=== PATIENT | female | born 1960 | race Caucasian/White ===

== ENCOUNTER 2022-04-04 20:12 | Inpatient (IN) | payer MEDICARE, OTHER ==
[~2022-04-04] VITALS: Ht 147.3 cm; Wt 99.8 kg
--- NOTE | 2022-04-04 21:02 | NUR ---
BIBFAMILY FROM HOME FOR PSYCH EVAL FOR ADMISSION PER FAMILY, "MEDS ARE NOT WORKING, SHE IS TALKING TO HERSELF". PT CONFUSED. TOLERATING R/A WELL WITH NO RESP DISTRESS. AMB WITH STANDBY ASSISTANCE. SAFETY MEASURES IN PLACE.
--- NOTE | 2022-04-04 21:03 | NUR ---
COVID SWAB COLLECTED
--- NOTE | 2022-04-04 21:04 | NUR ---
Juancarlos ahuja in [place] - 04/04/22 at 2104 by DIANA URINE AND COVID ANTIGEN SWAB COLLECTED AND SENT TO LAB
--- NOTE | 2022-04-04 21:05 | NUR ---
Note [email or web address] in EDM - 04/04/22 at 2116 by DIANA BIBFAMILY FROM HOME FOR PSYCH EVAL FOR ADMISSION PER FAMILY, "MEDS ARE NOT WORKING, SHE IS TALKING TO HERSELF". PT CONFUSED. TOLERATING R/A WELL WITH NO RESP DISTRESS. AMB WITH STANDBY ASSISTANCE. SAFETY MEASURES IN PLACE.
[2022-04-04 21:44] LABS: BILIRUBIN,URINE 1+ (NEGATIVE); COLOR,URINE YELLOW (YELLOW); LEUKOCYTE ESTERASE ,URINE 2+ (NEGATIVE); NITRITE, URINE NEGATIVE (NEGATIVE); PROTEIN,URINE TRACE mg/dl (NEGATIVE); UGLUCOSE NEGATIVE (NEGATIVE); UROBILINOGEN,URINE 0.2 EU/dL (0.2)
--- NOTE | 2022-04-04 21:49 | NUR ---
CATALYST RECOVERY OPERATOR AT PT'S BEDSIDE
[2022-04-04 21:59] LABS: BACTERIA,URINE 3+ /HPF (None Seen); WBC,URINE 21-50 /HPF (0-3)
[2022-04-04 22:07] LABS: BASOPHILS # (AUTO) 0.1 K/uL (0.0-0.2); BASOPHILS % (AUTO) 1.1 % (0.0-2.0); EOSINOPHILS % (AUTO) 3.5 % (0.0-6.0); HEMATOCRIT 41 % (33-45); HEMOGLOBIN 13.1 g/dL (11.5-14.8); LYMPHOCYTES % (AUTO) 29.9 % (20.0-44.0); MEAN CORPUSCULAR HGB CONC 32 g/dl (31.0-36.0); MEAN CORPUSCULAR VOLUME 80 fL (82-100); MONOCYTES # (AUTO) 0.5 K/uL (0.1-1.30); MONOCYTES % (AUTO) 7.6 % (2.0-12.0); NEUTROPHILS # (AUTO) 3.8 K/uL (1.8-8.9); NEUTROPHILS % (AUTO) 57.9 % (43.0-81.0); PLATELET COUNT (AUTO) 276 K/uL (150-450); RED BLOOD CELL COUNT(AUTO) 5.08 MIL/uL (4.0-5.2); WHITE BLOOD COUNT (AUTO) 6.6 K/uL (4.3-11.0)
[2022-04-04] MEDS ORDERED: TRAZ-257 MT (22:08)
[2022-04-04] MEDS ORDERED: BENZ0.5T43 MT (22:08)
[2022-04-04] MEDS ORDERED: QUET50TA PO (22:08)
[2022-04-04] MEDS ORDERED: DIVA250T4 PO (22:08)
[2022-04-04] MEDS ORDERED: NITROFURANTOIN/MONOHYDRATE MACROCRYSTALS 100 MG CAPSULE ONE (22:26)
[2022-04-04] MEDS ORDERED: QUETIAPINE FUMARATE 25 MG TABLET ONE (22:26)
[2022-04-04] MEDS ORDERED: QUETIAPINE FUMARATE 25 MG TABLET PO SCH (22:30)
[2022-04-04] MEDS ORDERED: NITROFURANTOIN/MONOHYDRATE MACROCRYSTALS 100 MG CAPSULE PO ONE (22:30)
[2022-04-04 22:33] LABS: ALANINE AMINOTRANSFERASE 25 U/L (12-78); ALBUMIN 3.4 g/dL (3.4-5.0); ALCOHOL, BLOOD < 3 mg/dL (0-0); ALKALINE PHOSPHATASE 56 U/L (46-116); ASPARTATE AMINOTRANSFERASE 20 U/L (15-37); BILIRUBIN,DIRECT 0.1 mg/dL (0.0-0.2); BILIRUBIN,TOTAL 0.2 mg/dL (0.2-1.0); CALCIUM, SERUM 8.7 mg/dL (8.5-10.1); CARBON DIOXIDE 34 mmol/L (21-32); CHLORIDE 103 mmol/L (98-107); CREATININE 0.8 mg/dL (0.6-1.3); GLUCOSE 142 mg/dL (74-106); POTASSIUM 3.5 mmol/L (3.5-5.1); SODIUM SERUM 139 mmol/L (136-145); TOTAL PROTEIN, SERUM 6.6 g/dL (6.4-8.2); UREA NITROGEN, BLOOD 20 mg/dL (7-18)
[2022-04-04 22:44] LABS: ACETAMINOPHEN 0 ug/ml (10-30)
--- NOTE | 2022-04-04 22:58 | NUR ---
CALLED SILVICULTURIST JAKOB LEFT VOICEMAIL
--- NOTE | 2022-04-04 23:14 | NUR ---
UPDATED TAMAR DAUGHTER [phone]
--- NOTE | 2022-04-04 23:29 | NUR ---
CALLED MANAGER OB JAKOB LEFT VOICEMAIL
[2022-04-05] MEDS ORDERED: LORAZEPAM INJ 2 MG/ML VIAL ONE ×2 (00:49→01:10)
[2022-04-05] MEDS ORDERED: LORAZEPAM INJ 2 MG/ML VIAL IM ONE ×2 (01:00→01:30)
[2022-04-05] MEDS ORDERED: diphenhydrAMINE HCL 50 MG/ML VIAL ONE (01:09)
[2022-04-05] MEDS ORDERED: diphenhydrAMINE HCL 50 MG/ML VIAL IM ONE (01:30)
--- NOTE | 2022-04-05 03:41 | NUR ---
JAKOB PIPER CRISIS TIME ON THE WAY FOR [place]
--- NOTE | 2022-04-05 05:36 | NUR ---
JAKOB PIPER CRISIS AT PT'S BEDSUDE FOR EVAL Addendum: 04/05/22 at 0656 by DIANA JAKOB PIPER CRISIS AT PT'S BEDSIDE FOR EVAL
--- NOTE | 2022-04-05 05:49 | NUR ---
PT PLACED ON 5150 HOLD BY JAKOB PIPER FOR DTO & GD
[2022-04-05] MEDS ORDERED: HYDR-4303 PO (05:53)
[2022-04-05] MEDS ORDERED: LISI10TA29 PO (05:54)
[2022-04-05] MEDS ORDERED: METF-440 PO (05:54)
[2022-04-05] MEDS ORDERED: ASPI-1420 PO (05:56)
[2022-04-05] MEDS ORDERED: LEVO50TA8 PO (05:56)
[2022-04-05] MEDS ORDERED: SIMV-46 PO (05:58)
--- NOTE | 2022-04-05 09:08 | NUR ---
PT REPORT GIVEN TO KACEY, ACCOUNT ASSISTANT NURSE GPS
[2022-04-05 09:30] VITALS: BP 142/83
[2022-04-05] MEDS ORDERED: MAG HYDROX/AL HYDROX/SIMETH 30 ML UDC PO PRN (09:30)
[2022-04-05] MEDS ORDERED: MAGNESIUM HYDROXIDE 30 ML UDC PO PRN (09:30)
[2022-04-05] MEDS ORDERED: BLOOD SUGAR DIAGNOSTIC 1 EACH STRIP IN ONE (09:30)
--- NOTE | 2022-04-05 09:30 | NUR ---
GPS/RN RECEIVED PT FROM ER ON 5149 FOR GD AND DTO ORIGINALLY FROM HOME, BROUGHT BY FAMILY MEMBERS. PT IS SEDATED AT THE TIME OF ADMISSION. ADMITTING ORDERS FROM DR QUEVEDO RECEIVED AND CARRIED OUT. DR BELLO MADE AWARE OF ADMISSION. PROPERTY CHECKED FOR CONTRABAND. VSS. PT'S DAUGHTER TAMAR AWARE OF ADMISSION
--- NOTE | 2022-04-05 09:33 | NUR ---
TRANSFERRED TO BED 219 IN STABLE CONDITION
--- NOTE | 2022-04-05 10:20 | NUR ---
SW Treatment Plan: Pt unable to sign due to her confusion.
--- NOTE | 2022-04-05 10:20 | NUR ---
LESTER Initial Discharge Note: Patient lives at home [address] [place] [address]; ([phone]). LESTER contacted patient's daughter Aaron ([phone]) to discuss treatment/discharge plan. She stated that she would want pt back home. She stated that she is the DPOA and she will drop off the documents when she visits the pt. LESTER will discuss with the MD, treatment team, and MD to help coordinate appropriate discharge plan.
--- NOTE | 2022-04-05 10:20 | NUR ---
LESTER Family Contact: SW spoke with pt's daughter Aaron ([phone]) to gather collateral and discuss treatment/discharge plan. Daughter stated that pt has been aggressive at home and that she was not eating for about 2-3 days and her appetite had decreased. Daughter stated that she is the DPOA and she will bring the documents. Daughter stated that she would want pt back home upon dc. Pt has her doctors, Heel Caser, Dr. Tapia located at [address] [place] [address]; ([phone]) and Psychiatrist, Dr. Quiroz [address] [address]; ([phone]).
--- NOTE | 2022-04-05 10:29 | NUR ---
LESTER Clinical Note: Patient placed on a 5150 hold for GD and danger to others. Pt was brought in due to striking out at family and has been aggressive. Patient will return back home located at [address] [place] [phone]; ([phone]). LESTER spoke with pt's daughter Aaron ([phone]) to gather collateral and discuss treatment/discharge plan. Daughter stated that pt has been aggressive at home and that she was not eating for about 2-3 days and her appetite had decreased. Daughter stated that she is the DPOA and she will bring the documents. Daughter stated that she would want pt back home upon dc. Pt has her doctors, [employer] G[employer]er, Dr. Tapia located at [address] [place] [address]; ([phone]) and Psychiatrist, Dr. Quiroz [address] [address]; ([phone]).
[2022-04-05] MEDS: ASPIRIN EC 81 MG TABLET.DR PO SCH (12:00)
[2022-04-05] MEDS ORDERED: HYDROCODONE/APAP 5/325MG TABLET PO PRN (12:00)
[2022-04-05] MEDS: DIVALPROEX SODIUM 250 MG TABLET.DR PO SCH ×2 (12:57→17:30)
--- NOTE | 2022-04-05 12:57 | NUR ---
GPS/RN 1200 AND 1300 SCHEDULED MEDS NOT GIVEN PT CONTINUES TO BE SEDATED
[2022-04-05 16:00] VITALS: BP 156/92
[2022-04-05] MEDS: OLANZAPINE 2.5 MG TABLET PO SCH (17:30)
[2022-04-05] MEDS: SIMVASTATIN 20 MG TABLET PO SCH (17:30)
[2022-04-05] MEDS: METFORMIN 500 MG TABLET PO SCH (17:31)
[2022-04-05 20:00] VITALS: BP 145/93
[2022-04-05] MEDS: OLANZAPINE 10 MG TABLET PO SCH (21:24)
[2022-04-05] MEDS: CEPHALEXIN MONOHYDRATE 500 MG CAPSULE PO SCH (21:26)
--- NOTE | 2022-04-05 22:04 | NUR ---
RN NOTES:PATIENT SITTING UP IN GERICHAIR, ,NO S/SX OF ACUTE DISTRESS NOTED,EASILY AGITATED, CONFUSED,DISORGANIZED,GUARDED PARANOID,ANXIOUS POOR JUDGEMENT INSIGHT AND IMPULSE CONTROL,HIGH FALL RISKS, NEEDS FREQUENT REDIRECTION, ALL NEEDS ATTENDED AND ANTICIPATED, DENIES SI/HI AT THIS TIME.ENCOURAGE TO VERBALIZED ANY FEELING OR CONCERN, SAFETY MEASURES IN PLACE. WILL CONTINUE TO MONITOR .
--- NOTE | 2022-04-05 22:21 | NUR ---
RN NOTES: PT. TRANSFERED BACK TO BED , PT. RESTING IN HER BED AT THIS TIME, WILL CONTINUE WITH CARE
[2022-04-06] MEDS ORDERED: Z GUARD REMEDY 4 OZ OINT TP PRN (06:30)
[2022-04-06] MEDS: LEVOTHYROXINE SODIUM 50 MCG TABLET PO SCH (07:30)
[2022-04-06 07:51] LABS: ALBUMIN 3.6 g/dL (3.4-5.0); BILIRUBIN,TOTAL 0.4 mg/dL (0.2-1.0); CREATININE 0.8 mg/dL (0.6-1.3); POTASSIUM 3.6 mmol/L (3.5-5.1); TOTAL PROTEIN, SERUM 6.9 g/dL (6.4-8.2)
[2022-04-06 07:55] LABS: CHOLESTEROL 208 mg/dL (<200); HDL CHOLESTEROL 51 mg/dL (40-60); LDL 129 mg/dL (0-99); TRIGLYCERIDES 132 mg/dL (30-150)
[2022-04-06 08:00] VITALS: BP 140/86
[2022-04-06] MEDS: Z GUARD REMEDY 4 OZ OINT TP SCH (08:47)
[2022-04-06] MEDS: METFORMIN 500 MG TABLET PO SCH ×2 (08:48→17:32)
[2022-04-06] MEDS: ASPIRIN EC 81 MG TABLET.DR PO SCH (08:48)
[2022-04-06] MEDS: OLANZAPINE 2.5 MG TABLET PO SCH ×2 (08:48→17:34)
[2022-04-06] MEDS: DIVALPROEX SODIUM 250 MG TABLET.DR PO SCH (08:48)
[2022-04-06] MEDS: LISINOPRIL (10MG) 10 MG TABLET PO SCH (08:49)
[2022-04-06] MEDS: CEPHALEXIN MONOHYDRATE 500 MG CAPSULE PO SCH ×2 (08:49→21:14)
[2022-04-06] MEDS: BENZTROPINE MESYLATE (1 MG) 1 MG TABLET PO SCH ×2 (12:35→17:31)
[2022-04-06] MEDS: DIVALPROEX SODIUM 125 MG CAP.SPRINK PO SCH ×2 (12:55→17:32)
[2022-04-06 16:05] VITALS: BP 117/86
[2022-04-06] MEDS: SIMVASTATIN 20 MG TABLET PO SCH (17:49)
--- NOTE | 2022-04-06 18:41 | NUR ---
GPS NOTES: PATIENT IN BED WITH AT BEDSIDE. PATIENT IN NO ACUTE DISTRESS NOTED AT THIS TIME. NO S/S AGITATION NOTED THE ENTIRE SHIFT. PATIENT RESPONDS TO NAME BUT WITH PERIODS OF CONFUSION. PATIENT IS COMPLIANT WITH MEDICATION THE ENTIRE SHIFT. PATIENT IS HIGH RISK FOR FALL AND ALL SAFETY MEASURES IMPLEMENTED. PATIENT WAS ASSISTED TO THE BATHROOM FOR SAFETY. BED LOCKED AND IN LOWEST POSITION WITH BED ALARM ON. ALL NEEDS ATTENDED AND ANTICIPATED, DENIES SI/HI AT THIS TIME. ENCOURAGE TO VERBALIZED ANY FEELING OR CONCERN. WILL ENDORSE TO NEXT SHIFT NURSE FOR CONTINUITY OF CARE
--- NOTE | 2022-04-06 20:20 | NUR ---
RN NOTES :PATIENT RESTING IN ROOM,NO S/SX OF ACUTE DISTRESS NOTED,EASILY AGITATED, CONFUSED,DISORGANIZED,GUARDED PARANOID,ANXIOUS POOR JUDGEMENT INSIGHT AND IMPULSE CONTROL,HIGH FALL RISKS, NEEDS FREQUENT REDIRECTION, PT'S VISTED ALL NEEDS ATTENDED AND ANTICIPATED, DENIES SI/HI AT THIS TIME.ENCOURAGE TO VERBALIZED ANY FEELING OR CONCERN, SAFETY MEASURES IN PLACE. WILL CONTINUE TO MONITOR .
[2022-04-06] MEDS: OLANZAPINE 10 MG TABLET PO SCH (21:14)
[2022-04-06 21:59] VITALS: BP 132/74
[2022-04-07 08:00] VITALS: BP 122/66
[2022-04-07] MEDS: CEPHALEXIN MONOHYDRATE 500 MG CAPSULE PO SCH ×2 (09:47→21:27)
[2022-04-07] MEDS: DIVALPROEX SODIUM 125 MG CAP.SPRINK PO SCH ×3 (09:47→16:42)
[2022-04-07] MEDS: LISINOPRIL (10MG) 10 MG TABLET PO SCH (09:47)
[2022-04-07] MEDS: BENZTROPINE MESYLATE (1 MG) 1 MG TABLET PO SCH ×3 (09:49→16:42)
[2022-04-07] MEDS: LEVOTHYROXINE SODIUM 50 MCG TABLET PO SCH (09:49)
[2022-04-07] MEDS: ASPIRIN EC 81 MG TABLET.DR PO SCH (09:49)
[2022-04-07] MEDS: Z GUARD REMEDY 4 OZ OINT TP SCH (09:56)
[2022-04-07] MEDS: OLANZAPINE 2.5 MG TABLET PO SCH ×2 (09:56→16:42)
[2022-04-07] MEDS: METFORMIN 500 MG TABLET PO SCH ×2 (09:56→16:42)
--- NOTE | 2022-04-07 12:49 | NUR ---
PATIENT C/O NAUSEATE, NEW ORDER ZOFRAN 4 MG SL Q4 PRN. NOTED AND CARRY OUT.
[2022-04-07] MEDS ORDERED: ONDANSETRON 4 MG TAB.RAPDIS PO PRN (13:00)
[2022-04-07 16:00] VITALS: BP 104/67
[2022-04-07] MEDS: SIMVASTATIN 20 MG TABLET PO SCH (17:03)
[2022-04-07 20:26] VITALS: BP 110/67
[2022-04-07] MEDS: OLANZAPINE 10 MG TABLET PO SCH (21:27)
[2022-04-07] MEDS: TEMAZEPAM 7.5 MG CAPSULE PO PRN (21:28)
--- NOTE | 2022-04-07 21:29 | NUR ---
Pt unable to sleep. Least restrictive measures ineffective. Restoril 7.5 mg po prn given as ordered. Will continue to monitor.
--- NOTE | 2022-04-07 22:41 | NUR ---
Post 1 hr Restoril effective. Pt asleep in bed easy to arouse. Will continue to monitor. Frequent visual check done for safety.
[2022-04-08 08:00] VITALS: BP 128/47
[2022-04-08] MEDS: OLANZAPINE 2.5 MG TABLET PO SCH ×2 (08:21→17:57)
[2022-04-08] MEDS: LEVOTHYROXINE SODIUM 50 MCG TABLET PO SCH (08:22)
[2022-04-08] MEDS: DIVALPROEX SODIUM 125 MG CAP.SPRINK PO SCH ×3 (08:22→17:35)
[2022-04-08] MEDS: BENZTROPINE MESYLATE (1 MG) 1 MG TABLET PO SCH ×3 (08:23→17:36)
[2022-04-08] MEDS: METFORMIN 500 MG TABLET PO SCH ×2 (08:23→17:35)
[2022-04-08] MEDS: LISINOPRIL (10MG) 10 MG TABLET PO SCH (08:25)
[2022-04-08] MEDS: CEPHALEXIN MONOHYDRATE 500 MG CAPSULE PO SCH ×2 (08:26→21:09)
[2022-04-08] MEDS: ASPIRIN EC 81 MG TABLET.DR PO SCH (08:26)
[2022-04-08] MEDS: Z GUARD REMEDY 4 OZ OINT TP SCH (08:27)
[2022-04-08] MEDS ORDERED: OLANZAPINE 10 MG VIAL IM ONE (11:30)
--- NOTE | 2022-04-08 14:33 | NUR ---
LESTER Family Contact: SW received a call from pt's daughter DELILAH Walker ([phone]) who left this card writer hand a voicemail and wanted to discuss further about pt's treatment. SW called back and left a voicemail.
[2022-04-08 16:00] VITALS: BP 103/72
[2022-04-08] MEDS: SIMVASTATIN 20 MG TABLET PO SCH (17:59)
[2022-04-08 20:04] VITALS: BP 126/81
[2022-04-08] MEDS: TEMAZEPAM 7.5 MG CAPSULE PO PRN (21:10)
[2022-04-08] MEDS: OLANZAPINE 10 MG TABLET PO SCH (21:10)
--- NOTE | 2022-04-09 07:20 | NUR ---
rn opening note received patient in [facility]. pt is no pain or discomfort at this time.pt is frisian speaking. with periods of confusion. PATIENT IS HIGH RISK FOR FALL AND ALL SAFETY MEASURES IMPLEMENTED.
[2022-04-09 08:00] VITALS: BP 137/75
[2022-04-09] MEDS: LEVOTHYROXINE SODIUM 50 MCG TABLET PO SCH (08:34)
[2022-04-09] MEDS: ASPIRIN EC 81 MG TABLET.DR PO SCH (08:34)
[2022-04-09] MEDS: BENZTROPINE MESYLATE (1 MG) 1 MG TABLET PO SCH (08:35)
[2022-04-09] MEDS: DIVALPROEX SODIUM 125 MG CAP.SPRINK PO SCH ×3 (08:35→16:40)
[2022-04-09] MEDS: METFORMIN 500 MG TABLET PO SCH ×2 (08:35→16:40)
[2022-04-09] MEDS: CEPHALEXIN MONOHYDRATE 500 MG CAPSULE PO SCH ×2 (08:36→20:57)
[2022-04-09] MEDS: LISINOPRIL (10MG) 10 MG TABLET PO SCH (08:36)
[2022-04-09] MEDS: OLANZAPINE 2.5 MG TABLET PO SCH (08:37)
--- NOTE | 2022-04-09 09:07 | NUR ---
RN-NOTES NOTED PATIENT AGITATED,SCREAMING AND YELLING AT STAFF REFUSED ALL P.O MEDICATIONS, UNABLE TO REDIRECT. DR. QUEVEDO MADE AWARE WITH T.O ORDER OF ZYPREXA 5MG IM ONCE. NOTED.
[2022-04-09] MEDS ORDERED: OLANZAPINE 10 MG VIAL IM ONE (09:30)
--- NOTE | 2022-04-09 10:00 | NUR ---
rn note crushed 0730 and 0900 medications.mixed it with applesauce. gave to patient. pt spit out some of morning medications
[2022-04-09] MEDS: Z GUARD REMEDY 4 OZ OINT TP SCH (11:43)
[2022-04-09] MEDS ORDERED: OLANZAPINE ZYDIS 5 MG TAB.RAPDIS PO PRN (12:00)
[2022-04-09 15:58] VITALS: BP 134/82
[2022-04-09] MEDS ORDERED: OLANZAPINE ZYDIS 5 MG TAB.RAPDIS PO SCH (17:00)
[2022-04-09] MEDS: SIMVASTATIN 20 MG TABLET PO SCH (18:05)
--- NOTE | 2022-04-09 19:15 | NUR ---
rn closing note pt at bedside and in gerichair. pt has periods of confusion.pt in no acute distress at this time. ENDORSEd TO NEXT SHIFT NURSE FOR CONTINUITY OF CARE
[2022-04-09 20:02] VITALS: BP 144/94
[2022-04-09] MEDS: LORAZEPAM 0.5 MG TABLET PO PRN (20:46)
--- NOTE | 2022-04-09 20:46 | NUR ---
RN NOTE PATIENT IS ANXIOUS AND RESTLESS. PRN ATIVAN 0.5MG PO GIVEN. WILL CONTINUE TO MONITOR FOR PATIENT'S SAFETY.
[2022-04-09] MEDS: OLANZAPINE ZYDIS 5 MG TAB.RAPDIS PO SCH (21:10)
[2022-04-09] MEDS: TEMAZEPAM 7.5 MG CAPSULE PO PRN (21:24)
[2022-04-10] MEDS: LEVOTHYROXINE SODIUM 50 MCG TABLET PO SCH (07:59)
[2022-04-10 08:00] VITALS: BP 111/61
[2022-04-10] MEDS: METFORMIN 500 MG TABLET PO SCH ×2 (08:00→16:55)
[2022-04-10] MEDS: ASPIRIN EC 81 MG TABLET.DR PO SCH (08:00)
[2022-04-10] MEDS: DIVALPROEX SODIUM 125 MG CAP.SPRINK PO SCH ×4 (08:00→22:31)
[2022-04-10] MEDS: CEPHALEXIN MONOHYDRATE 500 MG CAPSULE PO SCH ×2 (08:01→21:00)
[2022-04-10] MEDS: LISINOPRIL (10MG) 10 MG TABLET PO SCH (08:02)
[2022-04-10] MEDS: Z GUARD REMEDY 4 OZ OINT TP SCH (08:03)
[2022-04-10] MEDS: LORAZEPAM 0.5 MG TABLET PO PRN ×2 (10:39→16:54)
--- NOTE | 2022-04-10 10:39 | NUR ---
NURSE NOTE: PT AGITATED AT THIS TIME, YELLING OUT LOUD. ATIVAN PO ADMINISTERED ORDERED. PT PAKO WELL. WILL CONT TO MONITOR.
--- NOTE | 2022-04-10 11:27 | NUR ---
Court Notification: SW contacted pt's daughter Jocelyn ([phone]) of [address] hearing of 5615 and left a voicemail.
--- NOTE | 2022-04-10 11:33 | NUR ---
Court Hearing: Patient's court hearing for 8580 was today and it was upheld for danger to others and GD.
--- NOTE | 2022-04-10 11:39 | NUR ---
NURSE NOTE: PT CALM AT THIS TIME. ATIVAN EFFECTIVE. WILL CONT TO MONITOR.
[2022-04-10] MEDS: ACETAMINOPHEN 325 MG TABLET PO PRN (14:31)
[2022-04-10 16:00] VITALS: BP 147/95
--- NOTE | 2022-04-10 17:00 | NUR ---
NURSE NOTE: PT AGITATED AT THIS TIME. YELLING AT STAFF. ATIVAN PO ADMINISTERED ORDERED. PT PAKO WELL. WILL CONT TO MONITOR.
--- NOTE | 2022-04-10 18:00 | NUR ---
NURSE NOTE: PT CALM AT THIS TIME. ATIVAN EFFECTIVE. IN TO VISIT WITH PT. DAUGHTER WAS IN EARLIER TO HELP WITH LUNCH. PT IN STABLE COND AT THIS TIME. WILL CONT TO MONITOR.
[2022-04-10] MEDS: SIMVASTATIN 20 MG TABLET PO SCH (18:25)
[2022-04-10 19:51] VITALS: BP 139/68
[2022-04-10] MEDS: OLANZAPINE ZYDIS 5 MG TAB.RAPDIS PO SCH (22:00)
[2022-04-11 08:00] VITALS: BP 110/68
[2022-04-11] MEDS: LEVOTHYROXINE SODIUM 50 MCG TABLET PO SCH (08:15)
[2022-04-11] MEDS: METFORMIN 500 MG TABLET PO SCH ×2 (08:30→17:08)
[2022-04-11] MEDS: ASPIRIN EC 81 MG TABLET.DR PO SCH (08:30)
[2022-04-11] MEDS: CEPHALEXIN MONOHYDRATE 500 MG CAPSULE PO SCH (08:30)
[2022-04-11] MEDS: LISINOPRIL (10MG) 10 MG TABLET PO SCH (08:31)
[2022-04-11] MEDS: LORAZEPAM 0.5 MG TABLET PO PRN ×2 (08:32→14:38)
--- NOTE | 2022-04-11 08:40 | NUR ---
RN-NOTES NOTED PATIENT WITH SCREAMING AND YELLING,ATIVAN 0.5MG P.O GIVEN PRN ORDER. WILL CONT. MONITORING FOR SAFETY AND BEHAVIOR.
[2022-04-11] MEDS: Z GUARD REMEDY 4 OZ OINT TP SCH (09:31)
[2022-04-11] MEDS: DIVALPROEX SODIUM 125 MG CAP.SPRINK PO SCH ×2 (12:31→17:08)
--- NOTE | 2022-04-11 14:39 | NUR ---
RN-NOTES NOTED PATIENT WITH SCREAMING AND YELLING BANGING HER SO CHAIR TABLE WITH BOTH HAND. REDIRECTED AND ATIVAN 0.5MG P.O GIVEN PRN ORDER. WILL CONT. MONITORING FOR SAFETY AND BEHAVIOR.
--- NOTE | 2022-04-11 15:40 | NUR ---
RN-NOTES PATIENT IN THE DAY ROOM UP IN THE SO CHAIR CALM AND QUIET AT THIS TIME.NO ACUTE DISTRESS NOTED.
[2022-04-11] MEDS: SIMVASTATIN 20 MG TABLET PO SCH (17:08)
--- NOTE | 2022-04-11 18:32 | NUR ---
RN-NOTES PATIENT LYING IN BED INTERMITTENTLY SLEEPING WITH BREATHING EVEN AND NONLABORED EASILY AROUSED A/O X1 ,GUARDED NOTED WITH SCREAMING AND YELLING BEHAVIOR THIS SHIFT PRN MEDICATIONS GIVEN. NEEDS FREQUENT REDIRECTION. COMPLIANT WITH MEDICATIONS. NEEDS MODERATE ASSIST WITH ADL'S.AMBULATORY WITH ONE STAFF ASSIST.ALL NEEDS ATTENDED AND ANTICIPATED. WILL CONT. MONITORING FOR SAFETY AND BEHAVIOR. AT BED SIDE AT THIS TIME. WILL ENDORSE TO INCOMING NURSE FOR CONTINUITY OF CARE.
--- NOTE | 2022-04-11 19:42 | NUR ---
RN NOTES:PATIENT RESTING IN HER BED ,NO S/SX OF ACUTE DISTRESS NOTED,EASILY AGITATED, CONFUSED,DISORGANIZED,GUARDED PARANOID,ANXIOUS POOR JUDGEMENT INSIGHT AND IMPULSE CONTROL,HIGH FALL RISKS , PT'S AT BED SIDE ,NEEDS FREQUENT REDIRECTION, ALL NEEDS ATTENDED AND ANTICIPATED, DENIES SI/HI AT THIS TIME.ENCOURAGE TO VERBALIZED ANY FEELING OR CONCERN, SAFETY MEASURES IN PLACE. WILL CONTINUE TO MONITOR .
[2022-04-11 20:00] VITALS: BP 114/70
[2022-04-11] MEDS: OLANZAPINE ZYDIS 5 MG TAB.RAPDIS PO SCH (21:37)
[2022-04-12 08:00] VITALS: BP 107/66
[2022-04-12] MEDS: Z GUARD REMEDY 4 OZ OINT TP SCH (08:43)
[2022-04-12] MEDS: METFORMIN 500 MG TABLET PO SCH ×2 (08:44→16:26)
[2022-04-12] MEDS: ASPIRIN EC 81 MG TABLET.DR PO SCH (08:45)
[2022-04-12] MEDS: LISINOPRIL (10MG) 10 MG TABLET PO SCH (08:45)
[2022-04-12] MEDS: LEVOTHYROXINE SODIUM 50 MCG TABLET PO SCH (08:45)
[2022-04-12] MEDS: DIVALPROEX SODIUM 125 MG CAP.SPRINK PO SCH ×3 (08:45→16:26)
--- NOTE | 2022-04-12 11:07 | NUR ---
Home Health Contact: SW received a call from pt's home health spoke with Ana ([phone]) (F:[phone]) requesting for a hospital bed. LESTER got hospital bed prescription from [facility] and faxed it over.
[2022-04-12] MEDS ORDERED: OLANZAPINE ZYDIS 5 MG TAB.RAPDIS PO PRN (13:30)
[2022-04-12 16:00] VITALS: BP 122/67
[2022-04-12] MEDS: SIMVASTATIN 20 MG TABLET PO SCH (16:26)
[2022-04-12 20:00] VITALS: BP 130/70
--- NOTE | 2022-04-12 20:59 | NUR ---
RN NOTES:PATIENT RESTING IN HER BED ,NO S/SX OF ACUTE DISTRESS NOTED,EASILY AGITATED, CONFUSED,DISORGANIZED,GUARDED PARANOID,ANXIOUS POOR JUDGEMENT INSIGHT AND IMPULSE CONTROL,HIGH FALL RISKS , PT'S VISTED ,NEEDS FREQUENT REDIRECTION, ALL NEEDS ATTENDED AND ANTICIPATED, DENIES SI/HI AT THIS TIME.ENCOURAGE TO VERBALIZED ANY FEELING OR CONCERN, SAFETY MEASURES IN PLACE. WILL CONTINUE TO MONITOR .
[2022-04-12] MEDS: OLANZAPINE ZYDIS 5 MG TAB.RAPDIS PO SCH (21:31)
[2022-04-13] MEDS: LEVOTHYROXINE SODIUM 50 MCG TABLET PO SCH (07:47)
[2022-04-13 08:00] VITALS: BP 136/76
[2022-04-13 08:07] LABS: BASOPHILS # (AUTO) 0.1 K/uL (0.0-0.2); BASOPHILS % (AUTO) 1.5 % (0.0-2.0); EOSINOPHILS % (AUTO) 4.9 % (0.0-6.0); HEMATOCRIT 37 % (33-45); HEMOGLOBIN 12.2 g/dL (11.5-14.8); LYMPHOCYTES # (AUTO) 2.5 K/uL (0.8-4.8); LYMPHOCYTES % (AUTO) 39.1 % (20.0-44.0); MEAN CORPUSCULAR HGB CONC 33 g/dl (31.0-36.0); MEAN CORPUSCULAR VOLUME 80 fL (82-100); MONOCYTES # (AUTO) 0.6 K/uL (0.1-1.30); MONOCYTES % (AUTO) 9.7 % (2.0-12.0); NEUTROPHILS # (AUTO) 2.8 K/uL (1.8-8.9); NEUTROPHILS % (AUTO) 44.8 % (43.0-81.0); PLATELET COUNT (AUTO) 226 K/uL (150-450); RED BLOOD CELL COUNT(AUTO) 4.65 MIL/uL (4.0-5.2); WHITE BLOOD COUNT (AUTO) 6.4 K/uL (4.3-11.0)
[2022-04-13 08:22] LABS: ALBUMIN 3.1 g/dL (3.4-5.0); BILIRUBIN,TOTAL 0.2 mg/dL (0.2-1.0); CALCIUM, SERUM 8.5 mg/dL (8.5-10.1); CREATININE 0.6 mg/dL (0.6-1.3); POTASSIUM 3.5 mmol/L (3.5-5.1)
[2022-04-13] MEDS: METFORMIN 500 MG TABLET PO SCH ×2 (08:51→16:48)
[2022-04-13] MEDS: ASPIRIN EC 81 MG TABLET.DR PO SCH (08:51)
[2022-04-13] MEDS: DIVALPROEX SODIUM 125 MG CAP.SPRINK PO SCH ×3 (08:51→16:48)
[2022-04-13] MEDS: LISINOPRIL (10MG) 10 MG TABLET PO SCH (08:52)
[2022-04-13] MEDS: Z GUARD REMEDY 4 OZ OINT TP SCH (08:52)
[2022-04-13] MEDS: LORAZEPAM 0.5 MG TABLET PO PRN ×2 (11:45→17:24)
--- NOTE | 2022-04-13 11:45 | NUR ---
NURSE NOTE: PT AGITATED AT THIS TIME. ATIVAN PO ADMIN ORDERED. PT PAKO WELL. WILL CONT TO MONITOR.
--- NOTE | 2022-04-13 12:24 | NUR ---
NURSE NOTE: PT CALM AT THIS TIME. ATIVAN EFFECTIVE. WILL CONT TO MONITOR.
[2022-04-13 16:00] VITALS: BP 133/80
[2022-04-13] MEDS: ACETAMINOPHEN 325 MG TABLET PO PRN (16:19)
[2022-04-13] MEDS: SIMVASTATIN 20 MG TABLET PO SCH (17:24)
--- NOTE | 2022-04-13 17:24 | NUR ---
NURSE NOTE: PT AGITATED, YELLING. ATIVAN PO ADMIN ORDERED. PT PAKO WELL. WILL CONT TO MONITOR.
--- NOTE | 2022-04-13 18:24 | NUR ---
NURSE NOTE: PT CALM AT THIS TIME. ATIVAN EFFECTIVE. WILL CONT TO MONITOR.
[2022-04-13 20:00] VITALS: BP 141/78
[2022-04-13] MEDS: OLANZAPINE ZYDIS 5 MG TAB.RAPDIS PO SCH (21:00)
[2022-04-14] MEDS: TEMAZEPAM 7.5 MG CAPSULE PO PRN (00:09)
--- NOTE | 2022-04-14 04:00 | NUR ---
This patient has been sitting up in the chair since her left for the evening. She is alert, but no words can be understood. She makes little eye contact and is unable to follow simple commands unless she is physically guided to complete a task. She swallowed her medication with yogurt. She was given a sleeping pill due to restlessness. And then she slept for the duration of the night.
[2022-04-14 08:00] VITALS: BP 104/60
[2022-04-14] MEDS: LEVOTHYROXINE SODIUM 50 MCG TABLET PO SCH (08:05)
[2022-04-14] MEDS: DIVALPROEX SODIUM 125 MG CAP.SPRINK PO SCH ×3 (08:47→17:07)
[2022-04-14] MEDS: METFORMIN 500 MG TABLET PO SCH ×2 (08:48→17:07)
[2022-04-14] MEDS: LISINOPRIL (10MG) 10 MG TABLET PO SCH (08:48)
[2022-04-14] MEDS: Z GUARD REMEDY 4 OZ OINT TP SCH (08:48)
[2022-04-14] MEDS: ASPIRIN EC 81 MG TABLET.DR PO SCH (08:48)
[2022-04-14] MEDS: LORAZEPAM 0.5 MG TABLET PO PRN (10:50)
--- NOTE | 2022-04-14 10:50 | NUR ---
NURSE NOTE: PT AGITATED, YELLING OUT LOUD AT THIS TIME. ATIVAN PO ADMIN ORDERED. PT PAKO WELL. WILL CONT TO MONITOR.
--- NOTE | 2022-04-14 11:50 | NUR ---
NURSE NOTE: PT CALM AT THIS TIME. ATIVAN EFFECTIVE. WILL CONT TO MONITOR.
[2022-04-14 16:00] VITALS: BP 124/68
[2022-04-14] MEDS: SIMVASTATIN 20 MG TABLET PO SCH (18:00)
[2022-04-14 20:46] VITALS: BP 115/54
[2022-04-14] MEDS: OLANZAPINE ZYDIS 5 MG TAB.RAPDIS PO SCH (21:51)
[2022-04-15] MEDS: LEVOTHYROXINE SODIUM 50 MCG TABLET PO SCH (07:56)
[2022-04-15 08:00] VITALS: BP 121/71
[2022-04-15] MEDS: ASPIRIN EC 81 MG TABLET.DR PO SCH (08:23)
[2022-04-15] MEDS: LISINOPRIL (10MG) 10 MG TABLET PO SCH (08:23)
[2022-04-15] MEDS: METFORMIN 500 MG TABLET PO SCH ×2 (08:23→17:53)
[2022-04-15] MEDS: DIVALPROEX SODIUM 125 MG CAP.SPRINK PO SCH ×3 (08:23→17:52)
[2022-04-15] MEDS: LORAZEPAM 0.5 MG TABLET PO PRN (08:23)
[2022-04-15] MEDS: Z GUARD REMEDY 4 OZ OINT TP SCH (08:24)
--- NOTE | 2022-04-15 15:05 | NUR ---
RN-CO: NOTIFIED DR QUEVEDO TO FORWARD PT'S PRESCRIPTION TO [facility] [phone] FAX# [phone]. PER DAUGHTER'S LUCINE REQUEST.
[2022-04-15 16:00] VITALS: BP 137/68
[2022-04-15] MEDS: SIMVASTATIN 20 MG TABLET PO SCH (17:53)
[2022-04-15 20:33] VITALS: BP 140/77
[2022-04-15] MEDS: OLANZAPINE ZYDIS 5 MG TAB.RAPDIS PO SCH (21:08)
[2022-04-16] MEDS: ACETAMINOPHEN 325 MG TABLET PO PRN (00:36)
[2022-04-16 07:42] LABS: BASOPHILS % (AUTO) 0.6 % (0.0-2.0); EOSINOPHILS % (AUTO) 3.1 % (0.0-6.0); HEMATOCRIT 41 % (33-45); HEMOGLOBIN 13.3 g/dL (11.5-14.8); LYMPHOCYTES % (AUTO) 30.6 % (20.0-44.0); MEAN CORPUSCULAR HGB CONC 33 g/dl (31.0-36.0); MEAN CORPUSCULAR VOLUME 79 fL (82-100); MONOCYTES # (AUTO) 0.6 K/uL (0.1-1.30); MONOCYTES % (AUTO) 9.4 % (2.0-12.0); NEUTROPHILS # (AUTO) 3.6 K/uL (1.8-8.9); NEUTROPHILS % (AUTO) 56.3 % (43.0-81.0); PLATELET COUNT (AUTO) 201 K/uL (150-450); RED BLOOD CELL COUNT(AUTO) 5.14 MIL/uL (4.0-5.2); WHITE BLOOD COUNT (AUTO) 6.4 K/uL (4.3-11.0)
--- NOTE | 2022-04-16 07:56 | NUR ---
Discharge Note: Patient will return back home located at [address] [place] [address]; ([phone]). Patients daughter Aaron ([phone]) will pick up attendant pt at 10AM. Patients daughter Aaron ([phone]) is aware and agreeable. Patient is alert and oriented x1. Patient denies suicidal or homicidal ideation. Patient denies visual/auditory hallucinations. Patient will follow up with (Medical Technologist Chief) Dr. Tapia located at [address] [place] [address]; ([phone]) and (Psychiatrist) Dr. Quiroz [facility] [address]; ([phone]). Patients home health will continue services LESTER spoke with Ana ([phone]) to notify of discharge Addendum: 04/16/22 at 0939 by LESTER MCKEON Discharge canceled due to Depakote level high and michela Banks has been notified.
[2022-04-16 07:58] LABS: ALBUMIN 3.1 g/dL (3.4-5.0); BILIRUBIN,TOTAL 0.2 mg/dL (0.2-1.0); CALCIUM, SERUM 8.9 mg/dL (8.5-10.1); CREATININE 0.6 mg/dL (0.6-1.3); POTASSIUM 3.6 mmol/L (3.5-5.1); TOTAL PROTEIN, SERUM 6.2 g/dL (6.4-8.2)
[2022-04-16 08:00] VITALS: BP 119/83
[2022-04-16] MEDS: METFORMIN 500 MG TABLET PO SCH ×2 (08:01→17:13)
[2022-04-16] MEDS: ASPIRIN EC 81 MG TABLET.DR PO SCH (08:01)
[2022-04-16] MEDS: LEVOTHYROXINE SODIUM 50 MCG TABLET PO SCH (08:01)
[2022-04-16] MEDS: DIVALPROEX SODIUM 125 MG CAP.SPRINK PO SCH (08:01)
[2022-04-16] MEDS: LISINOPRIL (10MG) 10 MG TABLET PO SCH (08:02)
[2022-04-16] MEDS: Z GUARD REMEDY 4 OZ OINT TP SCH (08:05)
--- NOTE | 2022-04-16 09:40 | NUR ---
RN-NOTES DR. QUEVEDO MADE AWARE OF PATIENT DEPAKOTE LEVEL WITH T.O ORDER TO REPEAT DEPAKOTE LEVEL TOMORROW. NOTED AND CARRIED OUT.ALSO WILL HOLD NEXT DOSE OF DEPAKOTE TODAY.PATIENT'S DTR TAMAR WAS MADE AWARE THAT DISCHARGE WAS CANCELED BY DR. QUEVEDO TODAY.
[2022-04-16 16:00] VITALS: BP 128/70
[2022-04-16] MEDS: SIMVASTATIN 20 MG TABLET PO SCH (17:13)
[2022-04-16] MEDS: LORAZEPAM 0.5 MG TABLET PO PRN (17:34)
--- NOTE | 2022-04-16 17:35 | NUR ---
RN-NOTES NOTED PATIENT WITH SCREAMING AND YELLING IN THE DAY ROOM. ATIVAN 0.5MG P.O GIVEN PRN ORDER. WILL CONT. MONITORING FOR SAFETY AND BEHAVIOR.
--- NOTE | 2022-04-16 18:43 | NUR ---
RN-NOTES PATIENT IN THE DAY ROOM WITH FAMILY AT BED SIDE. CALM, NO ACUTE DISTRESS NOTED.
--- NOTE | 2022-04-16 18:55 | NUR ---
RN-NOTES PATIENT IN THE HALLWAY WITH FAMILY AT BED SIDE A/O X1 ,GUARDED NOTED WITH SCREAMING AND YELLING BEHAVIOR THIS SHIFT PRN MEDICATIONS GIVEN. NEEDS FREQUENT REDIRECTION. COMPLIANT WITH MEDICATIONS. NEEDS MODERATE ASSIST WITH ADL'S.AMBULATORY WITH ONE STAFF ASSIST.ALL NEEDS ATTENDED AND ANTICIPATED. WILL CONT. MONITORING FOR SAFETY AND BEHAVIOR. AT BED SIDE AT THIS TIME. WILL ENDORSE TO INCOMING NURSE FOR CONTINUITY OF CARE.
[2022-04-16 21:00] VITALS: BP 112/69
[2022-04-16] MEDS: OLANZAPINE ZYDIS 5 MG TAB.RAPDIS PO SCH (21:24)
[2022-04-17] MEDS: LEVOTHYROXINE SODIUM 50 MCG TABLET PO SCH (07:50)
[2022-04-17] MEDS: LORAZEPAM 0.5 MG TABLET PO PRN (07:52)
--- NOTE | 2022-04-17 07:54 | NUR ---
RN-NOTES NOTED PATIENT WITH SCREAMING AND YELLING IN THE ROOM. REDIRECTED AND ATIVAN 0.5MG P.O GIVEN PRN ORDER. WILL CONT. MONITORING FOR SAFETY AND BEHAVIOR.
[2022-04-17 08:00] VITALS: BP 114/77
[2022-04-17] MEDS: METFORMIN 500 MG TABLET PO SCH ×2 (08:54→16:16)
[2022-04-17] MEDS: LISINOPRIL (10MG) 10 MG TABLET PO SCH (08:54)
[2022-04-17] MEDS: ASPIRIN EC 81 MG TABLET.DR PO SCH (08:54)
[2022-04-17] MEDS: Z GUARD REMEDY 4 OZ OINT TP SCH (08:55)
--- NOTE | 2022-04-17 09:00 | NUR ---
RN-NOTES PATIENT IN THE DAY ROOM,UP IN THE SO CHAIR AWAKE,A/OX1 CALM AND QUIET. NO ACUTE DISTRESS NOTED.
[2022-04-17] MEDS: DIVALPROEX SODIUM 125 MG CAP.SPRINK PO SCH ×3 (12:06→21:01)
[2022-04-17 16:00] VITALS: BP 137/97
[2022-04-17] MEDS: SIMVASTATIN 20 MG TABLET PO SCH (17:21)
--- NOTE | 2022-04-17 18:17 | NUR ---
RN-NOTES PATIENT IN THE HALLWAY SO CHAIR.SLEEPING EASILY AROUSED,A/OX1,GUARDED,NO ACUTE DISTRESS NOTED.FAMILY AT BEDSIDE. NEEDS MAXIMUM ASSIST WITH ADL'S.COMPLIANT WITH MEDICATIONS. ALL NEEDS ATTENDED AND ANTICIPATED. WILL CONT. MONITORING FOR SAFETY AND BEHAVIOR. WILL ENDORSE TO INCOMING NURSE FOR CONTINUITY OF CARE.
--- NOTE | 2022-04-17 19:47 | NUR ---
GPS RN NOTES RECEIVED PATIENT LAYING IN BED WITH FAMILY ON BEDSIDE. A/O X1. CONFUSED AND GUARDED. BREATHING EVEN AND NON-LABORED ON ROOM AIR. NO C/O PAIN OR DISCOMFORT. SAFETY PRECAUTIONS IN PLACE: BED LOCKED AND IN LOWEST POSITION, SIDE RAILS UP X2, CALL MONTEIRO WITHIN REACH. WILL CONTINUE TO MONITOR FOR SAFETY AND BEHAVIOR.
[2022-04-17 20:00] VITALS: BP_SYST 146; BP_SYST 147; BP_DIAS 74
[2022-04-17] MEDS: OLANZAPINE ZYDIS 5 MG TAB.RAPDIS PO SCH (21:02)
--- NOTE | 2022-04-18 06:26 | NUR ---
GPS RN NOTE PATIENT IN BED ASLEEP, EASY TO AROUSE. A/O X1, CONFUSED, GUARDED, LABILE AND QUIET. NEEDS FREQUENT RE-ORIENTATION. SATURATING WELL IN ROOM AIR. NO CARDIAC OR RESPIRATORY DISTRESS. ALL DUE MEDS GIVEN AND NEEDS ATTENDED. SAFETY PRECAUTIONS MAINTAINED. WILL CONTINUE TO MONITOR Q15 MINS FOR SAFETY AND BEHAVIOR. WILL ENDORSE TO NEXT SHIFT FOR CONTINUITY OF CARE.
[2022-04-18 08:00] VITALS: BP 130/88
[2022-04-18] MEDS: LEVOTHYROXINE SODIUM 50 MCG TABLET PO SCH (08:33)
[2022-04-18] MEDS: METFORMIN 500 MG TABLET PO SCH ×2 (08:33→16:28)
[2022-04-18] MEDS: DIVALPROEX SODIUM 125 MG CAP.SPRINK PO SCH ×4 (08:33→21:42)
[2022-04-18] MEDS: ASPIRIN EC 81 MG TABLET.DR PO SCH (08:34)
[2022-04-18] MEDS: LISINOPRIL (10MG) 10 MG TABLET PO SCH (08:34)
[2022-04-18] MEDS: Z GUARD REMEDY 4 OZ OINT TP SCH (08:43)
[2022-04-18] MEDS: LORAZEPAM 0.5 MG TABLET PO PRN (10:01)
--- NOTE | 2022-04-18 10:04 | NUR ---
RN-NOTES NOTED PATIENT WITH SCREAMING AND YELLING IN THE ROOM. REDIRECTED AND ATIVAN 0.5MG P.O GIVEN PRN ORDER. WILL CONT. MONITORING FOR SAFETY AND BEHAVIOR.
--- NOTE | 2022-04-18 11:05 | NUR ---
RN-NOTES PATIENT IN THE DAY ROOM,UP IN THE SO CHAIR AWAKE,A/OX1 CALM AND QUIET AT THIS TIME. NO ACUTE DISTRESS NOTED.
[2022-04-18 16:00] VITALS: BP 127/88
[2022-04-18] MEDS: SIMVASTATIN 20 MG TABLET PO SCH (17:08)
[2022-04-18 20:00] VITALS: BP 106/53
--- NOTE | 2022-04-18 20:52 | NUR ---
[employer]. Received patient in the hallway with son . Patient appears confused, disorganized and guarded. Will continue to monitor for safety and behavior.
[2022-04-18] MEDS: OLANZAPINE ZYDIS 5 MG TAB.RAPDIS PO SCH (21:42)
--- NOTE | 2022-04-19 07:55 | NUR ---
Dr. Silverio made aware of the valproic acid result of 85 and ordered to D/C hold and D/C home and to follow up with the psych and medical doctors.
[2022-04-19 08:00] VITALS: BP 111/68
[2022-04-19 08:05] VITALS: BP 111/68
[2022-04-19] MEDS: METFORMIN 500 MG TABLET PO SCH (08:05)
[2022-04-19] MEDS: DIVALPROEX SODIUM 125 MG CAP.SPRINK PO SCH (08:05)
[2022-04-19] MEDS: LISINOPRIL (10MG) 10 MG TABLET PO SCH (08:05)
[2022-04-19] MEDS: ASPIRIN EC 81 MG TABLET.DR PO SCH (08:05)
[2022-04-19] MEDS: LEVOTHYROXINE SODIUM 50 MCG TABLET PO SCH (08:05)
[2022-04-19] MEDS: Z GUARD REMEDY 4 OZ OINT TP SCH (08:06)
--- NOTE | 2022-04-19 08:06 | NUR ---
Discharge Note: Patient will return back home located at [address] [place] [address]; ([phone]). Patients daughter Aaron ([phone]) will potato picker pt at 12PM. Patients daughter Aaron ([phone]) is aware and agreeable. Patient is alert and oriented x1. Patient denies suicidal or homicidal ideation. Patient denies visual/auditory hallucinations. Patient will follow up with (Club Manager) Dr. Tapia located at [address] [place] [address]; ([phone]) and (Psychiatrist) Dr. Quiroz [address] [address]; ([phone]). Patients home health will continue services spoke with Ana ([phone]) to notify of discharge day. Patient presents with euthymic mood and congruent affect.
--- NOTE | 2022-04-19 11:00 | NUR ---
GPS/RN PT DISCHARGED HOME WITH DAUGHTER AND SON. NO SI OR HI AT THE TIME OF DISCHARGE REPORTED. PT UNABLE TO SIGN D/C FOR MS D/T DEMENTIA. PRESCRIPTIONS AND EXIT CARE INSTRUCTIONS PROVIDED TO PT'S DAUGHTER TAMAR. PROPERTY RETURNED. VSS AT THE TIME OF D/C
== END 2022-04-19 11:10 | disposition home health service (06) | DRG 885 ==
LOC: ER 20:16 → GPS 04-05 09:00
PROVIDERS: ADMIT Psychiatry & Neurology Psychosomatic Medicine
DX: F25.0 Schizoaffective disorder, bipolar type (principal); F02.82 Dementia in other diseases classified elsewhere, unspecified severity, with psychotic disturbance; N39.0 Urinary tract infection, site not specified; Z68.42 Body mass index [BMI] 45.0-49.9, adult; E11.9 Type 2 diabetes mellitus without complications; E03.9 Hypothyroidism, unspecified; E66.9 Obesity, unspecified; E78.5 Hyperlipidemia, unspecified; G31.09 Other frontotemporal neurocognitive disorder; G30.9 Alzheimer's disease, unspecified; I10 Essential (primary) hypertension; M19.011 Primary osteoarthritis, right shoulder
CPT/HCPCS: 36415; 73030-TC; 80048-TC; 80053-TC; 80061-TC; 80076-TC; 80164-TC; 81001; 85025-TC; 87086-TC; C9803; G0480; J1200; J2060; J3490